=== PATIENT | male | born 1945 | race Caucasian/White ===

== ENCOUNTER → 2016-06-06 | Outpatient (CLI) | payer MEDICARE, BC ==
[~2016-06-06] MED LIST: ACYC-114 PO; ALLO300T PO; ALLO300T42 PO; BIOT1CAP3 PO; CHOL200040 PO; CIPR500T3 PO; CIPR500T87 PO; ENOX100S5 SQ; ENOX40SY4 SQ; GLUC1CAP80 PO; LORA-439 PO; LOSA25TA5 PO; LOSARTAN PO; OMEG1CAP12 PO; ONDA8TAB12 PO; OXYC1TAB7 PO; POLY17PO5 PO; PRED50TA PO; TEMA15CA6 PO
== END | disposition home or self-care (01) ==
LOC: PETCFH 09:19
PROVIDERS: ATTEND Internal Medicine Hematology & Oncology
DX: C83.33 Diffuse large B-cell lymphoma, intra-abdominal lymph nodes (principal); I70.8 Atherosclerosis of other arteries; K40.90 Unilateral inguinal hernia, without obstruction or gangrene, not specified as recurrent
CPT/HCPCS: 78815; A9552

== ENCOUNTER → 2018-02-04 | Outpatient (CLI) | payer MEDICARE, BC ==
[~2018-02-04] MED LIST changes: -ALLO300T42 PO; +ALLO300T80 PO; +CHOL200024 PO; -LOSA25TA5 PO; +LOSA25TA6 PO; +MULT-658 PO; -OMEG1CAP12 PO; +OMEG1CAP23 PO; +RED600CA2 PO; +UBID1CAP43 PO; +WARF7.5T46 PO
== END | disposition home or self-care (01) ==
LOC: STAR 10:01
PROVIDERS: ATTEND Surgery
DX: Z02.9 Encounter for administrative examinations, unspecified (principal)

== ENCOUNTER 2018-02-11 09:51 | Day surgery (SDC) | payer MEDICARE, BC ==
[~2018-02-11] VITALS: Ht 185.4 cm; Wt 116.0 kg
[~2018-02-11 09:51] MED LIST changes: +BUPIVACAINE/PF-EPI 0.5% 1:200K ONE
[2018-02-11] MEDS ORDERED: LACTATED RINGERS 1,000 ML IV SCH (10:17)
[2018-02-11] MEDS ORDERED: SCOPOLAMINE PATCH, 1.5MG PATCH.TD72 TD ONE (10:30)
[2018-02-11] MEDS ORDERED: ACETAMINOPHEN 500 MG TABLET PO ONE (10:30)
[2018-02-11] MEDS ORDERED: DIAZEPAM 5 MG TABLET PO ONE (10:30)
[2018-02-11 10:36] VITALS: BP 173/96
[2018-02-11 11:12] LABS: INTERNATIONAL NORMALIZED RATIO 1.16 (0.93-1.1); PROTHROMBIN TIME 12.2 Seconds (9.6-11.5)
[2018-02-11] MEDS ORDERED: FENTANYL PF 250 MCG/5ML ONE (11:26)
[2018-02-11] MEDS ORDERED: MIDAZOLAM 1 MG/ML, 2ML ONE (11:26)
[2018-02-11] MEDS ORDERED: PROPOFOL 10 MG/ML, 20ML ONE (11:27)
[2018-02-11] MEDS ORDERED: DEXAMETHASONE 4 MG/ML, 1ML ONE (11:27)
[2018-02-11] MEDS ORDERED: SUCCINYLCHOLINE 20 MG/ML, 10ML ONE (11:27)
[2018-02-11] MEDS ORDERED: ONDANSETRON 2MG/ML, 2ML ONE (11:27)
[2018-02-11] MEDS ORDERED: ROCURONIUM 10MG/ML,5ML ONE (11:27)
[2018-02-11] MEDS ORDERED: CEFAZOLIN 1,000 MG ONE ×2 (11:28)
[2018-02-11] MEDS ORDERED: KETOROLAC 30 MG/1 ML ONE (12:19)
[2018-02-11] MEDS ORDERED: ALBUTEROL SULFATE 2.5 MG/3 ML NPPB PRN (13:00)
[2018-02-11] MEDS ORDERED: OXYcodone 5 MG/5 ML ORAL.SOL UDC PO PRN (13:00)
[2018-02-11] MEDS ORDERED: EPHEDRINE 50 MG/ML, 1ML IVPush PRN (13:00)
[2018-02-11] MEDS ORDERED: ONDANSETRON ODT 8 MG PO PRN (13:00)
[2018-02-11] MEDS ORDERED: LABETALOL 5MG/ML, 20ML IV PRN (13:00)
[2018-02-11] MEDS ORDERED: HYDROmorphone 2 MG/ML, 1ML IVPush PRN (13:00)
[2018-02-11] MEDS ORDERED: MORPHINE SULFATE 4 MG/ML, 1ML IVPush PRN (13:00)
[2018-02-11] MEDS ORDERED: PROMETHAZINE 12.5 MG SUPP PR PRN (13:00)
[2018-02-11] MEDS ORDERED: DIAZEPAM 5 MG/ML, 2ML IVPush PRN (13:00)
[2018-02-11] MEDS ORDERED: ONDANSETRON 2MG/ML, 2ML IV PRN (13:00)
[2018-02-11] MEDS ORDERED: MIDAZOLAM 1 MG/ML, 2ML IV PRN (13:00)
[2018-02-11] MEDS ORDERED: MEPERIDINE/PF 25MG/0.5ML IVPush PRN (13:00)
[2018-02-11] MEDS ORDERED: HALOPERIDOL 5 MG/ML IV PRN (13:00)
[2018-02-11] MEDS ORDERED: PROMETHAZINE 25 MG/ML, 1ML IV PRN (13:00)
[2018-02-11] MEDS ORDERED: OXYcodone 5 MG/5 ML ORAL.SOL UDC ONE (13:45)
[2018-02-11] MEDS ORDERED: FENTANYL PF 100 MCG/2ML ONE (13:59)
[2018-02-11] MEDS: FENTANYL PF 100 MCG/2ML IV PRN ×3 (14:00→15:02)
[2018-02-11] MEDS ORDERED: hydrALAzine 20 MG/ML, 1ML ONE (14:03)
[2018-02-11] MEDS: hydrALAzine 20 MG/ML, 1ML IV PRN ×2 (14:25→14:53)
== END 2018-02-11 17:25 | disposition home or self-care (01) ==
LOC: OUT 09:51
PROVIDERS: ATTEND Surgery
DX: K42.0 Umbilical hernia with obstruction, without gangrene (principal); M62.08 Separation of muscle (nontraumatic), other site; Z79.01 Long term (current) use of anticoagulants; Z72.89 Other problems related to lifestyle; Z98.890 Other specified postprocedural states
CPT/HCPCS: 36415; 49653; 85610; 85730; C1781; J0330; J0360; J0690; J1100; J1885; J2250; J2405; J2704; J3010; J7120